=== PATIENT | female | born 1945 | race Caucasian/White ===

== ENCOUNTER → 2017-12-21 | Outpatient (CLI) | payer MEDICARE ==
[~2017-12-21] MED LIST: AMLO1CAP10 PO; BENA20TA2 PO; BRIM5DRO2 EACHEYE; DULA0.75 SQ; FURO-92 PO; GLIM4TAB PO; HYDR1TAB12 PO; IBUP-1223 PO; INSU100C5 SQ-INSULIN; INSU100V13 SQ-INSULIN; LINA5TAB PO; MECL25TA4 PO; MELO7.5T31 PO; SAXA2.5T PO; SIMV20TA3 PO; TIZA2CAP2 PO; TRAZ50TA18 PO; UNKNOWN ANTIBIOTIC
[2017-12-21 15:43] LABS: ALANINE AMINOTRANSFERASE 18 U/L (12-78); ALBUMIN 3.5 g/dL (3.4-5.0); ANION GAP 10 mmol/L (5-15); CALCIUM 9.3 mg/dL (8.5-10.1); CHLORIDE 107 mmol/L (98-107); CREATININE 1.03 mg/dL (0.55-1.02)
[2017-12-21 15:45] LABS: ALKALINE PHOSPHATASE 54 U/L (45-117); BILIRUBIN,TOTAL 0.3 mg/dL (0.2-1.0)
== END | disposition home or self-care (01) ==
LOC: STAR 14:00
PROVIDERS: ATTEND Surgery
DX: Z01.812 Encounter for preprocedural laboratory examination (principal)
CPT/HCPCS: 36415; 80053; 93005

== ENCOUNTER 2017-12-29 06:33 | Day surgery (SDC) | payer MEDICARE ==
[2017-12-21 14:54] VITALS: BP 147/75
[~2017-12-29] VITALS: Ht 165.1 cm; Wt 114.6 kg
[2017-12-29] MEDS ORDERED: LACTATED RINGERS 1,000 ML IV SCH (07:38)
[2017-12-29] MEDS ORDERED: SUGAMMADEX 200 MG/2 ML IVPush ONE (07:47)
[2017-12-29] MEDS ORDERED: FENTANYL PF 100 MCG/2ML ONE (07:50)
[2017-12-29] MEDS ORDERED: EPINEPHRINE 1 MG/ML, 1ML ONE (08:09)
[2017-12-29] MEDS ORDERED: BUPIVACAINE/PF 0.5% ONE (08:09)
[2017-12-29] MEDS ORDERED: ONDANSETRON 2MG/ML, 2ML ONE (08:29)
[2017-12-29] MEDS ORDERED: PHENYLEPHRINE 10 MG/ML ONE (08:29)
[2017-12-29] MEDS ORDERED: PROPOFOL 10 MG/ML, 20ML ONE (08:29)
[2017-12-29] MEDS ORDERED: SUCCINYLCHOLINE 20 MG/ML, 10ML ONE (08:29)
[2017-12-29] MEDS ORDERED: ROCURONIUM 10 MG/ML,10ML ONE (08:29)
[2017-12-29] MEDS ORDERED: DEXAMETHASONE 4 MG/ML, 1ML ONE (08:29)
[2017-12-29] MEDS ORDERED: CEFAZOLIN 1,000 MG ONE (08:29)
[2017-12-29] MEDS ORDERED: EPHEDRINE 50 MG/ML, 1ML ONE (08:29)
[2017-12-29] MEDS ORDERED: MEPERIDINE/PF 25MG/0.5ML IVPush PRN (09:00)
[2017-12-29] MEDS ORDERED: HYDROmorphone 1 MG/ML, 1ML IV PRN (09:00)
[2017-12-29] MEDS ORDERED: FENTANYL PF 100 MCG/2ML IV PRN (09:00)
[2017-12-29] MEDS ORDERED: OXYcodone 5 MG/5 ML ORAL.SOL UDC PO PRN (09:00)
[2017-12-29] MEDS ORDERED: morphine SULFATE 10 MG/ML, 1ML IV PRN (09:00)
[2017-12-29] MEDS ORDERED: HYDROcodone/APAP 7.5-325MG/15ML UDC PO PRN (09:00)
[2017-12-29] MEDS ORDERED: KETOROLAC 30 MG/1 ML ONE (09:56)
[2017-12-29] MEDS ORDERED: KETOROLAC 30 MG/1 ML IVPush PRN (10:00)
== END 2017-12-29 12:15 ==
LOC: OUT 06:33
PROVIDERS: ATTEND Surgery
DX: D24.2 Benign neoplasm of left breast (principal); E11.9 Type 2 diabetes mellitus without complications; I10 Essential (primary) hypertension; E78.5 Hyperlipidemia, unspecified; E66.01 Morbid (severe) obesity due to excess calories; Z85.3 Personal history of malignant neoplasm of breast
CPT/HCPCS: 19120; 82962; 88305; 88307; J0171; J0330; J0690; J1100; J1885; J2370; J2405; J2704; J3010; J3490; J7120

== ENCOUNTER → 2020-07-17 | Outpatient (CLI) | payer MEDICARE ==
[~2020-07-17] MED LIST changes: -AMLO1CAP10 PO; +AMLO1CAP11 PO; -BENA20TA2 PO; +BENA20TA54 PO; +DULA1.5P SC; +EMPA25TA PO; -HYDR1TAB12 PO; +HYDR1TAB13 PO; +IBUP-1222 PO; +INSU100I32 SC; +MECL-101 PO; -MECL25TA4 PO; +ROSU10TA2 PO; +SIMV20TA19 PO; -SIMV20TA3 PO; +TRAV2.5D7 RIGHTEYE; -TRAZ50TA18 PO; +TRAZ50TA66 PO
[2020-07-17 09:38] LABS: ALANINE AMINOTRANSFERASE 17 U/L (12-78); ALBUMIN 3.5 g/dL (3.4-5.0); ANION GAP 4 mmol/L (5-15); CALCIUM 10.7 mg/dL (8.5-10.1); CHLORIDE 115 mmol/L (98-107)
[2020-07-17 09:40] LABS: ALKALINE PHOSPHATASE 35 U/L (45-117); BILIRUBIN,TOTAL 0.4 mg/dL (0.2-1.0); TOTAL PROTEIN 7.3 g/dL (6.4-8.2)
== END | disposition home or self-care (01) ==
LOC: STAR 08:10
PROVIDERS: ATTEND Internal Medicine Gastroenterology
DX: Z01.818 Encounter for other preprocedural examination (principal); Z20.828 Contact with and (suspected) exposure to other viral communicable diseases
CPT/HCPCS: 36415; 80053; 87635; 93005

== ENCOUNTER 2020-07-23 07:24 | Day surgery (SDC) | payer MEDICARE ==
[~2020-07-23] VITALS: Ht 165.1 cm; Wt 114.0 kg
[2020-07-23] MEDS ORDERED: LACTATED RINGERS 1,000 ML IV SCH (08:12)
[2020-07-23 08:15] VITALS: BP 136/84
[2020-07-23] MEDS ORDERED: LIDOCAINE-MPF 1%, 2ML INFIL ONE (08:30)
[2020-07-23] MEDS ORDERED: CHLORHEXIDINE 15 ML UDC MM ONE (08:30)
[2020-07-23] MEDS ORDERED: PROPOFOL 10 MG/ML, 50ML ONE (09:11)
[2020-07-23] MEDS ORDERED: MEPERIDINE/PF 25MG/0.5ML IVPush PRN (10:00)
[2020-07-23] MEDS ORDERED: DIAZEPAM 5 MG/ML, 2ML IVPush PRN (10:00)
[2020-07-23] MEDS ORDERED: ACETAMINOPHEN 325 MG TABLET PO PRN (10:00)
[2020-07-23] MEDS ORDERED: HYDROmorphone 2 MG/ML, 1ML IVPush PRN (10:00)
[2020-07-23] MEDS ORDERED: KETOROLAC 30 MG/1 ML IV PRN (10:00)
[2020-07-23] MEDS ORDERED: LABETALOL 5MG/ML, 20ML IV PRN (10:00)
[2020-07-23] MEDS ORDERED: OXYcodone 5 MG/5 ML ORAL.SOL UDC PO PRN (10:00)
[2020-07-23] MEDS ORDERED: FENTANYL PF 100 MCG/2ML IV PRN (10:00)
[2020-07-23] MEDS ORDERED: PROMETHAZINE 25 MG/ML, 1ML IV PRN (10:00)
[2020-07-23] MEDS ORDERED: ALBUTEROL SULFATE 2.5 MG/3 ML NPPB PRN (10:00)
[2020-07-23] MEDS ORDERED: hydrALAzine 20 MG/ML, 1ML IV PRN (10:00)
== END 2020-07-23 11:50 | disposition home or self-care (01) ==
LOC: OUT 07:24
PROVIDERS: ATTEND Internal Medicine Gastroenterology
DX: Z12.11 Encounter for screening for malignant neoplasm of colon (principal); Z20.828 Contact with and (suspected) exposure to other viral communicable diseases; D12.3 Benign neoplasm of transverse colon; D12.2 Benign neoplasm of ascending colon; K64.8 Other hemorrhoids; K57.30 Diverticulosis of large intestine without perforation or abscess without bleeding; E10.9 Type 1 diabetes mellitus without complications; I10 Essential (primary) hypertension; E78.5 Hyperlipidemia, unspecified; E66.01 Morbid (severe) obesity due to excess calories; Z68.41 Body mass index [BMI] 40.0-44.9, adult; Z79.4 Long term (current) use of insulin; Z79.899 Other long term (current) drug therapy; Z82.49 Family history of ischemic heart disease and other diseases of the circulatory system; Z80.0 Family history of malignant neoplasm of digestive organs; Z83.3 Family history of diabetes mellitus
CPT/HCPCS: 45380; 45385; 82962; 87635; 88305; J2704; J7120